=== PATIENT | male | born 1970 | race Caucasian/White ===

== ENCOUNTER → 2022-05-27 | Day surgery (SDC) | payer OTHER ==
[~2022-05-27] VITALS: Ht 185.4 cm; Wt 112.0 kg
[~2022-05-27] MED LIST: ASPIRIN EC81 MG PO; ATORVASTATIN CA40 MG PO; AUGMENTIN 875-1 EACH PO; CATAFLAM50 MG PO; INSULIN AS100 UNIT/2 IJ; LISINOPRIL10 MG PO; SULFAMETHOXAZO1 EACH PO
[2022-05-27 08:12] LABS: HCT 44.4 % (42.0-52.0); HGB 14.9 g/dl (13.2-18.0); MCH 28.8 pg (25.0-31.0); MCHC 33.6 g/dL (32.0-36.0); MCV 85.9 fL (78.0-100.0); MPV 10.9 fL (6.0-9.5); RBC 5.17 M/uL (4.70-6.00); RDW 13.1 % (11.5-14.0); WBC 7.3 K/uL (4.0-10.5)
[2022-05-27 08:34] LABS: ALBUMIN 3.7 g/dL (3.4-5.0); BILIRUBIN - TOTAL 0.9 mg/dL (0.2-1.0); BUN/CREAT RATIO (CALC) 17.8 RATIO; CREATININE 1.01 mg/dL (0.67-1.17); GLOBULIN (CALCULATION) 3.5 g/dL; POTASSIUM 4.4 mmol/L (3.5-5.1); TOTAL PROTEIN 7.2 g/dL (6.4-8.2)
== END | disposition home or self-care (01) ==
LOC: FAS 07:30
PROVIDERS: Surgery
DX: Z12.11 Encounter for screening for malignant neoplasm of colon (principal); I10 Essential (primary) hypertension; E10.9 Type 1 diabetes mellitus without complications; E78.5 Hyperlipidemia, unspecified; G47.30 Sleep apnea, unspecified; Z79.82 Long term (current) use of aspirin; Z79.899 Other long term (current) drug therapy
CPT/HCPCS: 36415; 80053; J2250; J2704